=== PATIENT | female | born 1970 | race African-American/Black ===

== ENCOUNTER 2018-02-19 12:08 | Emergency (ER) | payer SELFPAY ==
--- NOTE | 2018-02-19 16:05 | CT ---
CT CERVICAL SPINE WITH CORONAL AND SAGITTAL REFORMATIONS: Date: 02/19/18 HISTORY: Trauma, neck pain. FINDINGS/IMPRESSION: There is loss of cervical lordosis with mild reversal. Mild degenerative changes are present. No acut e fracture or subluxation is seen. No facet malalignment is noted. POS: [facility]
--- NOTE | 2018-02-19 16:06 | CT ---
CT BRAIN WITHOUT CONTRAST: Date: 02/19/18 HISTORY: Trauma. Headache. FINDINGS: No evidence of acute infarct, hemorrhage, midline shift, or abnormal extra-axial fluid collections ar e seen. The ventricular size is normal and the basilar cisterns are patent. The bony calvarium is int act. The visualized paranasal sinuses and mastoid air cells are well aerated. IMPRESSION: No CT evidence of acute intracranial process. POS: [facility]
== END 2018-02-19 16:41 | disposition home or self-care (01) ==
LOC: MADERS 12:08
DX: F07.81 Postconcussional syndrome (principal); M54.5 Low back pain; V49.49XA Driver injured in collision with other motor vehicles in traffic accident, initial encounter
CPT/HCPCS: 70450; 72125